=== PATIENT | female | born 1980 | race Caucasian/White ===

== ENCOUNTER 2020-11-08 10:10 | Emergency (ER) | payer OTHER ==
[2020-11-08 10:49] VITALS: BP 156/94; PULSE 92; BMI 33.3
== END 2020-11-08 13:27 | disposition home or self-care (01) ==
LOC: JER 10:10 → JERFT 10:10
PROC: 0H98XZZ Drainage of Buttock Skin, External Approach (ICD-10-PCS; principal; 2020-11-08)
DX: L05.01 Pilonidal cyst with abscess (principal)
CPT/HCPCS: 87070; 87076; 87205; 99284-25

== ENCOUNTER 2020-11-11 01:52 | Emergency (ER) | payer OTHER ==
[2020-11-11 02:15] VITALS: BP 155/94; PULSE 86; TEMP 98.1; BMI 36.1
== END 2020-11-11 03:14 | disposition home or self-care (01) ==
LOC: JER 01:52
DX: Z48.00 Encounter for change or removal of nonsurgical wound dressing (principal)
CPT/HCPCS: 99281-25